=== PATIENT | female | born 1945 | race Hispanic/Latino ===

== ENCOUNTER → 2017-12-14 | Outpatient (CLI) | payer MEDICARE, OTHER | END | disposition home or self-care (01) | LOC: RAH 10:55 | PROVIDERS: ATTEND Family Medicine | DX: Z12.31 Encounter for screening mammogram for malignant neoplasm of breast (principal) | CPT/HCPCS: 77067 ==

== ENCOUNTER → 2019-05-14 | Outpatient (CLI) | payer MEDICARE, OTHER | END | disposition home or self-care (01) | LOC: RAH 10:19 | PROVIDERS: ATTEND Family Medicine | DX: Z12.31 Encounter for screening mammogram for malignant neoplasm of breast (principal) | CPT/HCPCS: 77067 ==

== ENCOUNTER 2020-08-21 01:22 | Observation (INO) | payer MEDICARE, OTHER ==
[~2020-08-21] VITALS: Ht 165.1 cm; Wt 111.6 kg
[2020-08-21 01:52] LABS: BASOPHILS % (AUTO) 0.4 % (0.0-5.0); HEMATOCRIT 38.6 % (36-48); LYMPHOCYTES % (AUTO) 24.3 % (21.0-51.0); MEAN CORPUSCULAR VOLUME 88.5 fL (79-99); MONOCYTES % (AUTO) 7.8 % (3.0-13.0); NEUTROPHILS % (AUTO) 66.2 % (40.0-77.0); PLATELET COUNT (AUTO) 169 K/uL (130-400); RED BLOOD CELL COUNT(AUTO) 4.36 MIL/uL (4.00-5.50)
[2020-08-21] MEDS ORDERED: ASPIRIN 325 MG TABLET ONE (01:53)
[2020-08-21 01:58] LABS: CREATININE 1.1 mg/dL (0.5-1.5)
[2020-08-21 02:08] LABS: INR 0.98 (0.85-1.15); PROTHROMBIN TIME 10.7 SEC (9.6-11.6)
[2020-08-21 02:10] LABS: PARTIAL THROMBOPLASTIN TIME 27.4 SEC (26.3-35.5)
[2020-08-21] MEDS ORDERED: METOPROLOL TARTRATE 1 MG/ML 5ML VIAL IV ONE (02:18)
[2020-08-21] MEDS ORDERED: ACETAMINOPHEN 650 MG SUPPOSITORY RC PRN (06:45)
[2020-08-21] MEDS ORDERED: ACETAMINOPHEN 325 MG TAB PO PRN (06:45)
[2020-08-21] MEDS ORDERED: MORPHINE SULFATE 2 MG/ML 1ML SYG IVP PRN (06:45)
[2020-08-21] MEDS ORDERED: LACTATED RINGERS 1000ML 1,000 ML IV SCH (06:45)
[2020-08-21] MEDS ORDERED: CLONIDINE HCL 0.1 MG TABLET PO PRN (06:45)
[2020-08-21] MEDS ORDERED: LACTULOSE 20 GM/30 ML UDCUP PO PRN (06:45)
[2020-08-21] MEDS ORDERED: ENOXAPARIN SODIUM 40 MG/0.4 ML SYRINGE SQ ONE (07:53)
[2020-08-21] MEDS ORDERED: ASPIRIN 81MG TAB.CHEW ONE (07:53)
[2020-08-21] MEDS ORDERED: PANTOPRAZOLE SODIUM 40 MG TABLET.DR ONE (07:53)
[2020-08-21] MEDS ORDERED: METOPROLOL TARTRATE 25 MG TAB ONE (07:54)
[2020-08-21] MEDS: METOPROLOL TARTRATE 25 MG TAB PO SCH ×2 (09:00→20:03)
[2020-08-21] MEDS: PANTOPRAZOLE SODIUM 40 MG TABLET.DR PO SCH (09:00)
[2020-08-21] MEDS: ENOXAPARIN SODIUM 40 MG/0.4 ML SYRINGE SQ SCH (09:00)
[2020-08-21] MEDS: ASPIRIN 81MG TAB.CHEW PO SCH (09:00)
[2020-08-21 09:09] LABS: CREATINE KINASE, TOTAL 223 U/L (21-232); MYOGLOBIN 77 ng/mL (10-92); TROPONIN I < 0.04 ng/mL (0.00-0.06)
[2020-08-21] MEDS ORDERED: MAGNESIUM 2GM PREMIX 50ML 50 ML IV PRN (11:45)
[2020-08-21] MEDS ORDERED: POTASSIUM CHLORIDE 10% ELIXIR 20 MEQ/15 ML UDCUP PO PRN (11:45)
[2020-08-21] MEDS ORDERED: LIDOCAINE HCL-MPF 1% 2ML VIAL IV PRN ×2 (11:45)
[2020-08-21] MEDS ORDERED: POTASSIUM CHLORIDE 20MEQ/100ML 100 ML IV PRN ×2 (11:45)
[2020-08-21] MEDS ORDERED: ONDANSETRON HCL 4 MG/2 ML VIAL IVP PRN (11:45)
[2020-08-21] MEDS ORDERED: GLUCAGON 1MG KIT 1 MG ML IM PRN (11:45)
[2020-08-21] MEDS ORDERED: DEXTROSE 50%-WATER 50 ML DISP.SYRIN IV PRN (11:45)
[2020-08-21 11:53] VITALS: BP 109/66
[2020-08-21] MEDS ORDERED: ASPI-1197 PO (13:05)
[2020-08-21] MEDS ORDERED: CHOL200012 PO (13:05)
[2020-08-21] MEDS ORDERED: HYDR12.54 PO (13:16)
[2020-08-21] MEDS ORDERED: AMLO-257 PO (13:16)
[2020-08-21] MEDS ORDERED: LEVO75CA5 PO (13:16)
[2020-08-21] MEDS ORDERED: CITA-107 PO (13:16)
[2020-08-21] MEDS ORDERED: SIMV-43 PO (13:16)
[2020-08-21] MEDS ORDERED: TERA10CA4 PO (13:16)
[2020-08-21] MEDS ORDERED: LOSA100T58 PO (13:16)
[2020-08-21 14:40] LABS: CREATINE KINASE, TOTAL 184 U/L (21-232); MYOGLOBIN 77 ng/mL (10-92); TROPONIN I < 0.04 ng/mL (0.00-0.06)
[2020-08-21 16:00] VITALS: BP 113/50
[2020-08-21] MEDS ORDERED: LACTATED RINGERS 1000ML 2,000 ML IV ONE (19:11)
[2020-08-21 19:13] VITALS: BP 109/50
[2020-08-21 20:07] LABS: CREATINE KINASE, TOTAL 171 U/L (21-232); MYOGLOBIN 62 ng/mL (10-92); TROPONIN I < 0.04 ng/mL (0.00-0.06)
[2020-08-22 03:43] VITALS: BP 131/74
[2020-08-22 05:53] LABS: HEMATOCRIT 35.5 % (36-48); MEAN CORPUSCULAR HGB CONC 33.5 g/dL (32.0-36.0); MEAN CORPUSCULAR VOLUME 92.4 fL (79-99); RED BLOOD CELL COUNT(AUTO) 3.84 MIL/uL (4.00-5.50); RED CELL DISTRIBUTION WIDTH 13.4 % (11.0-15.5); WHITE BLOOD COUNT (AUTO) 7.1 K/uL (4.8-10.8)
[2020-08-22 06:11] LABS: HEMOGLOBIN A1C 6.8 % (4.0-6.0)
[2020-08-22 06:31] LABS: CREATININE 1.1 mg/dL (0.5-1.5); PHOSPHORUS 3.4 mg/dL (2.5-4.9); POTASSIUM 3.6 mmol/L (3.5-5.1); THYROID STIMULATING HORMONE 2.73 uIU/mL (0.36-3.74)
[2020-08-22 07:00] VITALS: BP 111/52
[2020-08-22] MEDS: METOPROLOL TARTRATE 25 MG TAB PO SCH ×2 (08:47→20:31)
[2020-08-22] MEDS: PANTOPRAZOLE SODIUM 40 MG TABLET.DR PO SCH (08:47)
[2020-08-22] MEDS: ENOXAPARIN SODIUM 40 MG/0.4 ML SYRINGE SQ SCH (08:48)
[2020-08-22] MEDS: ASPIRIN 81MG TAB.CHEW PO SCH (08:49)
[2020-08-22] MEDS: POTASSIUM CHLORIDE 20 MEQ ERTAB PO PRN ×2 (08:49→11:13)
[2020-08-22 11:00] VITALS: BP 128/66
[2020-08-22 15:00] VITALS: BP 124/57
[2020-08-22 19:28] VITALS: BP 145/61
[2020-08-22] MEDS: APIXABAN 5 MG TABLET PO SCH (20:31)
[2020-08-22] MEDS ORDERED: SIMVASTATIN 20 MG TABLET PO SCH (21:00)
[2020-08-22 23:51] VITALS: BP 131/66
[2020-08-23 03:28] VITALS: BP 125/65
[2020-08-23 04:24] LABS: HEMATOCRIT 34.8 % (36-48); MEAN CORPUSCULAR HEMOGLOBIN 30.9 pg (27.0-33.0); MEAN CORPUSCULAR HGB CONC 33.3 g/dL (32.0-36.0); MEAN CORPUSCULAR VOLUME 92.8 fL (79-99); RED BLOOD CELL COUNT(AUTO) 3.75 MIL/uL (4.00-5.50); RED CELL DISTRIBUTION WIDTH 13.3 % (11.0-15.5); WHITE BLOOD COUNT (AUTO) 7.5 K/uL (4.8-10.8)
[2020-08-23] MEDS ORDERED: CITALOPRAM 20 MG TABLET PO ONE (07:05)
[2020-08-23] MEDS: METOPROLOL TARTRATE 25 MG TAB PO SCH (07:07)
[2020-08-23] MEDS: PANTOPRAZOLE SODIUM 40 MG TABLET.DR PO SCH (07:08)
[2020-08-23] MEDS: APIXABAN 5 MG TABLET PO SCH (07:08)
[2020-08-23] MEDS ORDERED: LEVOTHYROXINE 75 MCG TABLET PO SCH (07:30)
[2020-08-23 08:00] VITALS: BP 122/61
[2020-08-23] MEDS ORDERED: CITALOPRAM 20 MG TABLET PO SCH (09:00)
[2020-08-23 11:56] VITALS: BP 139/63
== END 2020-08-23 13:25 | disposition home or self-care (01) ==
LOC: EDH 01:22 → EDHIP 06:43 → 4DH 11:48
PROVIDERS: ADMIT Internal Medicine Critical Care Medicine; ATTEND Internal Medicine Critical Care Medicine
DX: R07.89 Other chest pain (principal); Z20.822 Contact with and (suspected) exposure to COVID-19; I48.0 Paroxysmal atrial fibrillation; E03.9 Hypothyroidism, unspecified; E78.5 Hyperlipidemia, unspecified; I10 Essential (primary) hypertension; F41.9 Anxiety disorder, unspecified; E66.01 Morbid (severe) obesity due to excess calories; E11.9 Type 2 diabetes mellitus without complications; E78.1 Pure hyperglyceridemia; F32.9 Major depressive disorder, single episode, unspecified; E78.00 Pure hypercholesterolemia, unspecified; Z79.82 Long term (current) use of aspirin; Z79.01 Long term (current) use of anticoagulants; Z79.899 Other long term (current) drug therapy
CPT/HCPCS: 36415 ×3; 71045; 80048 ×2; 80061; 82550 ×3; 82565; 83036; 83690; 83735; 83874 ×3; 83880 ×2; 84100; 84443; 84484 ×4; 85025; 85027 ×2; 85610; 85730; 86376; 86800; 87426; 93005; 93306; 93356; 96360; 96361 ×2; 96372; 99285; G0378 ×53; J1650 ×2; J3490; J7120; U0003

== ENCOUNTER 2020-11-05 16:38 | Emergency (ER) | payer MEDICARE, OTHER ==
[~2020-11-05 16:38] MED LIST: ASPI-1197 PO; CHOL200012 PO; CITA-107 PO; LEVO75CA5 PO; SIMV-43 PO
[2020-11-05] MEDS ORDERED: HYDROCODONE/ACETAMINOPHEN 10/325 MG TAB ONE (17:27)
== END 2020-11-05 17:49 | disposition home or self-care (01) ==
LOC: EDH 16:38
DX: S52.514A Nondisplaced fracture of right radial styloid process, initial encounter for closed fracture (principal); F41.9 Anxiety disorder, unspecified; I10 Essential (primary) hypertension; W18.39XA Other fall on same level, initial encounter; Y93.01 Activity, walking, marching and hiking; Y92.89 Other specified places as the place of occurrence of the external cause; Y99.8 Other external cause status
CPT/HCPCS: 29125; 73110; 73130

== ENCOUNTER → 2022-06-13 | Outpatient (CLI) | payer MEDICARE, OTHER ==
[~2022-06-13] MED LIST changes: +REGADENOSON 0.4 MG/5 ML PF SYG IVP ONE; +REGADENOSON 0.4 MG/5 ML PF SYG IVP SCH
== END | disposition home or self-care (01) ==
LOC: SHCH 07:38
PROVIDERS: ATTEND Internal Medicine Cardiovascular Disease
DX: R07.9 Chest pain, unspecified (principal); R06.02 Shortness of breath
CPT/HCPCS: 78452; 96374; 93017; J2785; A9500 ×2

== ENCOUNTER 2023-10-30 11:41 | Emergency (ER) | payer MEDICARE, OTHER ==
[~2023-10-30] VITALS: Ht 167.6 cm; Wt 103.4 kg
[~2023-10-30 11:41] MED LIST changes: -REGADENOSON 0.4 MG/5 ML PF SYG IVP ONE; -REGADENOSON 0.4 MG/5 ML PF SYG IVP SCH
[2023-10-30] MEDS: ONDANSETRON ODT 4MG TAB SL ONE (13:02)
[2023-10-30] MEDS: METOCLOPRAMIDE 10 MG/2 ML VIAL IVP ONE (13:02)
[2023-10-30] MEDS: FAMOTIDINE 20MG VIAL IV ONE (13:02)
[2023-10-30] MEDS: 0.9%NACL 1000ML 1,000 ML IV ONE (13:03)
[2023-10-30] MEDS: KETOROLAC 30MG VIAL (30MG/ML) IVP ONE (13:03)
[2023-10-30 13:14] LABS: BASOPHILS # (AUTO) 0.05 K/uL (0.00-0.20); BASOPHILS % (AUTO) 0.3 % (0.0-5.0); EOSINOPHILS # (AUTO) 0.01 K/uL (0.00-0.70); EOSINOPHILS % (AUTO) 0.1 % (0.0-8.0); HEMATOCRIT 41.8 % (36-48); IMMATURE GRANULOCYTE ABSOLUTE 0.07 K/uL (0-1); LYMPHOCYTES # (AUTO) 0.6 K/uL (1.0-4.8); LYMPHOCYTES % (AUTO) 3.8 % (21.0-51.0); MEAN CORPUSCULAR HGB CONC 35.2 g/dL (32.0-36.0); MEAN CORPUSCULAR VOLUME 88.2 fL (79-99); MONOCYTES # (AUTO) 0.7 K/uL (0.1-1.0); MONOCYTES % (AUTO) 4.8 % (3.0-13.0); NEUTROPHILS # (AUTO) 13.7 K/uL (1.8-7.7); NEUTROPHILS % (AUTO) 90.5 % (40.0-77.0); PLATELET COUNT (AUTO) 205 K/uL (130-400); RED BLOOD CELL COUNT(AUTO) 4.74 MIL/uL (4.00-5.50); RED CELL DISTRIBUTION WIDTH 12.5 % (11.0-15.5); WHITE BLOOD COUNT (AUTO) 15.2 K/uL (4.8-10.8)
[2023-10-30 13:28] LABS: ALBUMIN 3.3 g/dL (3.5-5.0); BILIRUBIN,TOTAL 1.1 mg/dL (0.2-1.0); CREATININE 1.4 mg/dL (0.5-1.0); TOTAL PROTEIN, SERUM 7.9 g/dL (6.0-8.3)
[2023-10-30] MEDS: POTASSIUM BICARB/CIT AC 25 MEQ TABLET.EFF PO ONE (13:34)
[2023-10-30 13:43] LABS: APPEARANCE,URINE CLOUDY (CLEAR); BILIRUBIN,URINE NEGATIVE (NEGATIVE); COLOR,URINE YELLOW (YELLOW); GLUCOSE, URINE (UA) NEGATIVE (NEGATIVE); KETONES,URINE NEGATIVE (NEGATIVE); LEUKOCYTE ESTERASE ,URINE 500 Leu/uL (NEGATIVE); NITRATE,URINE 1+ (NEGATIVE); OCCULT BLOOD,URINE SMALL (NEGATIVE); PROTEIN,URINE NEGATIVE (NEGATIVE); UROBILINOGEN,URINE 0.2 mg/dL (0.2-1.0)
[2023-10-30 13:44] LABS: ADD UA MICROSCOPIC YES
[2023-10-30 13:48] LABS: BACTERIA,URINE MOD /HPF (None Seen); MUCUS,URINE RARE LPF (None Seen); SQUAMOUS EPITHELIAL CELL,UR RARE /HPF (0-2); WBC,URINE >100 /HPF (0-1)
[2023-10-30 13:52] VITALS: BP 119/55; PULSE 81; RESP 18; O2SAT 98
[2023-10-30] MEDS: CEFTRIAXONE 1G VIAL IVPB ONE (14:33)
[2023-10-30] MEDS ORDERED: ONDA4TAB10 PO (14:45)
[2023-10-30] MEDS ORDERED: CEFD300C3 PO (14:45)
== END 2023-10-30 15:11 | disposition home or self-care (01) ==
LOC: EDH 11:41
DX: N39.0 Urinary tract infection, site not specified (principal); E11.9 Type 2 diabetes mellitus without complications; I48.91 Unspecified atrial fibrillation; Z79.82 Long term (current) use of aspirin; Z79.899 Other long term (current) drug therapy; Z98.890 Other specified postprocedural states
CPT/HCPCS: 99285; 96365; 96375; 96361; 80053; 85025; 87077; 87088; 87186; 81001; 36415; J3490; J0696; J1885; J2765